=== PATIENT | female | born 1935 | race Caucasian/White ===

== ENCOUNTER 2016-10-03 09:04 | Outpatient (CLI) ==
[2014-04-11 11:24] VITALS: BMI 22.8
--- NOTE | 2016-10-04 11:48 | MAMMO ---
EXAM: Bilateral digital screening mammogram History: Screening Comparison: Bilateral mammogram 03/16/2015 Findings: MLO and CC views of bilateral breasts demonstrate scattered fibroglandular breast parench yma. Stable benign bilateral vascular calcifications. There are no dominant masses, no suspicious microcalcifications and no architectural distortions Impression: Benign stable mammogram. Recommend followup routine screening mammography in 1 year. BIRADS 2
== END 2016-10-03 09:05 | disposition home or self-care (01) ==
LOC: RAD 09:04
PROVIDERS: ATTEND Family Medicine
DX: Z12.31 Encounter for screening mammogram for malignant neoplasm of breast (principal)

== ENCOUNTER 2017-11-13 10:58 | Outpatient (CLI) ==
[2014-04-11 11:24] VITALS: BMI 22.8
--- NOTE | 2017-11-14 11:04 | MAMMO ---
EXAM: Digital screening mammogram with tomosynthesis HISTORY: Screening COMPARISON: 10/03/2016 FINDINGS: Digital MLO and CC views of the right and left breast were performed. Tomosynthesis was performed. Computer aided detection utilized. There are scattered fibroglandular densities. There is no evidence for mass, asymmetry, distortion, or suspicious calcifications in either breast. IMPRESSION: 1. No evidence of malignancy in the right or left breast. 2. Annual screening mammogram is recommended in one year. BIRADS category 1, negative examination
== END 2017-11-13 10:59 | disposition home or self-care (01) ==
LOC: RAD 10:58
PROVIDERS: ATTEND Family Medicine
DX: Z12.31 Encounter for screening mammogram for malignant neoplasm of breast (principal)
CPT/HCPCS: 77067

== ENCOUNTER 2018-04-01 09:27 | Day surgery (SDC) ==
[2014-04-11 11:24] VITALS: BMI 22.8
[2018-04-01] MEDS ORDERED: LIDOCAINE 1% 20 ML MDV ID STA (09:59)
[2018-04-01 10:09] VITALS: TEMP 98.2
[2018-04-01] MEDS ORDERED: DIPRIVAN 20 ML VIAL IVP ONE (10:17)
[2018-04-01 11:47] VITALS: BP 123/67
--- NOTE | 2018-04-02 10:06 | OP ---
PROCEDURE: COLONOSCOPY TO THE CECUM. ENDOSCOPIST: Chepe RAYMOND M.D. INDICATION: HISTORY OF POLYPS. INSTRUMENT: [employer]-190. MEDICATION: PER ANESTHESIA. PROCEDURE: The patient was positioned for colonoscopy. The digital rectal exam was negative. The colonoscope was inserted through the anus and advanced to the cecum. The cecum was identified using the ileocecal valve and the appendiceal orifice as landmarks. The scope was slowly withdrawn through an adequately prepped colon. Small polyp was removed in the ascending colon 60 cm and 40 cm using snare cautery. No tissue recovered at 40 cm. Diverticular disease throughout the colon. Retroflex exam was otherwise normal. Withdrawal time 13 minutes, 51 seconds. PLAN: 1. Repeat as needed. CC: DR. FLORENTINO GUTIÉRREZ
== END 2018-04-01 11:45 | disposition home or self-care (01) ==
LOC: SURG 09:27
PROVIDERS: ATTEND Internal Medicine Gastroenterology
DX: Z86.010 Personal history of colon polyps (principal); K63.5 Polyp of colon; D12.2 Benign neoplasm of ascending colon; D12.4 Benign neoplasm of descending colon